=== PATIENT | female | born 1950 | race Caucasian/White ===

== ENCOUNTER → 2024-11-27 | Outpatient (CLI) | payer MEDICARE, BC, OTHER ==
[2024-11-27 15:41] LABS: HCT 42.8 % (37.2-46.3); HGB 14.6 g/dL (12.0-15.0); MCH 31.9 pg (27.0-32.0); MCHC 34.1 g/dL (32.0-37.0); MCV 93.7 FL (80.0-97.0); Mean Platelet Volume 10.3 FL (9.5-12.2); NRBC Per 100 WBC 0 X 10*3/uL (0.00-0.01); Platelet Count 268 X 10*3/uL (140-440); RBC 4.57 X 10*6/uL (4.10-5.20); RDW 12.4 % (11.5-14.5); WBC 8.85 X 10*3/uL (4.50-10.00)
[2024-11-27 16:33] LABS: Blood Urea Nitrogen 15.4 mg/dL (9.0-27.0); Carbon Dioxide 23.3 mmol/L (21.6-31.8); Chloride 106 mmol/L (96-109); Sodium 142 mmol/L (135-145)
== END | disposition home or self-care (01) ==
LOC: LABPAT 11:58
PROVIDERS: ATTEND Internal Medicine Interventional Cardiology
DX: Z01.812 Encounter for preprocedural laboratory examination (principal); I25.10 Atherosclerotic heart disease of native coronary artery without angina pectoris
CPT/HCPCS: 36415; 80051; 82565; 84520; 85027

== ENCOUNTER 2024-12-01 08:29 | Day surgery (SDC) | payer MEDICARE, BC, OTHER ==
[~2024-12-01 08:29] MED LIST: ALPRAZolam 0.25 MG TAB PO PRN; ALPRAZolam 0.5 MG TAB PO PRN; HEPARIN SODIUM,PORCINE (1 ML) 2,500 UNIT in SODIUM CHLORIDE 0.9% 250 ML IRRIGATION PRN; HEPARIN SODIUM,PORCINE 10,000 UNIT in SODIUM CHLORIDE 0.9% 1,000 ML IRRIGATION PRN; NITROGLYCERIN SL TABS 0.4 MG TAB SUBLINGUAL PRN
[2024-12-01] MEDS: MIDAZOLAM 2 MG/2 ML VIAL IVP ONE ×2 (10:57→11:21)
[2024-12-01] MEDS: LIDOCAINE 1% INJ 10MG/ML (20 ML MDV) SQ ONE (10:59)
[2024-12-01] MEDS: VERAPAMIL SYRINGE (5 MG/10 ML) INTRAARTER ONE ×2 (11:03→13:03)
[2024-12-01] MEDS: HEPARIN SODIUM 1,000 UN/ML (10ML VL) IVP ONE ×2 (11:05→11:20)
[2024-12-01] MEDS: NITROGLYCERIN 1000MCG/10ML SYRINGE INTRACORON ONE (11:07)
[2024-12-01] MEDS: IV FLUID CONTINUATION 400 ML IV ONE (11:21)
[2024-12-01] MEDS: SODIUM CHLORIDE 0.9% 1,000 ML IV ONE (11:22)
[2024-12-01] MEDS: SODIUM CHLORIDE 0.9% 500 ML 500 ML IV ONE (11:22)
[2024-12-01] MEDS: NITROGLYCERIN SL TABS 0.4 MG TAB SUBLINGUAL ONE (11:25)
[2024-12-01] MEDS: CLOPIDOGREL 75 MG TAB PO ONE (11:33)
[2024-12-01] MEDS: IOPAMIDOL-370 100ML BTL INJ ONE ×3 (11:35→13:02)
[2024-12-01] MEDS: HYDROmorphone 0.5 MG/0.5 ML SYRINGE IVP ONE ×2 (11:53→12:43)
[2024-12-01] MEDS: PHENYLEPHRINE-0.9% NACL SYG 1,000 MCG/10 ML SYRINGE IVP ONE (12:34)
[2024-12-01] MEDS: ONDANSETRON 4 MG/2 ML VIAL IVP ONE (12:40)
[2024-12-01] MEDS: NITROGLYCERIN 1000MCG/10ML SYRINGE INTRAARTER ONE (13:00)
[2024-12-01] MEDS: HEPARIN SODIUM,PORCINE (1 ML) 2,500 UNIT in SODIUM CHLORIDE 0.9% 250 ML IRRIGATION ONE (13:03)
[2024-12-01] MEDS: HEPARIN SODIUM (1,000 UNIT/ML) 1,000 UNIT in SODIUM CHLORIDE 0.9% 1,000 ML IRRIGATION ONE (13:03)
[2024-12-01] MEDS: ONDANSETRON 4 MG/2 ML VIAL IVP STA (13:25)
[2024-12-01] MEDS: ASPIRIN 325 MG TAB PO STA (13:35)
[2024-12-01] MEDS: ATORVASTATIN 80 MG TAB PO STA (13:35)
[2024-12-01] MEDS: SODIUM CHLORIDE 0.9% 1,000 ML IV SCH (13:36)
[2024-12-01] MEDS: HYDROmorphone 0.5 MG/0.5 ML SYRINGE IVP STA (14:36)
[2024-12-01] MEDS: CLOPIDOGREL 75 MG TAB PO SCH (14:37)
[2024-12-01 16:31] LABS: Glucose,Whole Blood 146 mg/dL (70-110)
[2024-12-01] MEDS: SODIUM CHLORIDE 0.9% 1,000 ML in EMPTY BAG 1 BAG IV SCH (16:31)
--- NOTE | 2024-12-01 16:34 | CA ---
Transthoracic Echo Report Name: Diana Sifuentes Age: 73 Gender: F : 1950 Exam Date: 12/01/2024 12:46 Exam Location: [facility] Ht (in): 64 Wt (lb): 119 Ordering Physician: Akanksha Bernal MD ([id number]) Attending/Referring Phys: Environmental Professional Allegra Chung RDCS Procedure CPT: Indications: HEART FUNCTION/EFFUSION POSSIBLE Cardiac Hx: Limited for pericardial effusion during cath Technical Quality: Good Contrast 1: Total Dose (mL): Contrast 2: Total Dose (mL): MEASUREMENTS (Male / Female) Normal Values FINDINGS Left Ventricle Left ventricular ejection fraction is estimated at 55 % by visual. Right Ventricle Right Atrium Left Atrium Mitral Valve Aortic Valve Tricuspid Valve Pulmonic Valve Pericardium No pericardial effusion. Aorta CONCLUSIONS Normal LV size and function without wall motion abnormality. No pericardial effusion Previewed by: Dr. Akanksha Bernal MD (Electronically Signed) Final Date: 01 Dec 2024 16:33
--- NOTE | 2024-12-01 17:14 | P.CARDCATH ---
Date of Procedure: 12/01/24 Description of Procedure: History: Patient was referred for cardiac catheterization to evaluate for progression of CAD. This is a 73-year-old lady with a known history of CAD with previous PCI of cherokee circumflex as well as ramus intermedius performed in 2006 with 2 drug- eluting stents of 3.0 caliber and varying lengths. She has been having exertional shortness of breath and a stress test revealed inferior lateral reversible defect therefore she was advised cardiac catheterization and possible PCI and brought in for the procedure after due discussion regarding risks benefits and options. Procedure: #1 left heart catheterization and coronary angiography. #2 intravascular ultrasound of circumflex coronary artery and right coronary artery adjunctive procedure performed before and after PCI. #3 iFR assessment of the ramus intermedius and right coronary artery. # 4 PTCA and stenting of proximal and mid circumflex coronary artery with 2 drug-eluting stents. #5 PTCA and stenting of proximal and mid/distal right coronary artery with 3 drug-eluting stents. Performed by Dr. Rosalio Bernal Procedure Details: The risks, benefits, complications, treatment options, and expected outcomes were discussed with the patient. The patient and/or family concurred with the proposed plan, giving informed consent. Patient was brought to the kiln labourer after IV hydration was begun and oral premedication was given. Patient was further sedated with midazolam. Patient was prepped and draped in the usual manner. Under strict aseptic precautions and local anesthesia a 6 Mongolian introducer was placed in the right radial artery. Using a JL 3/5 and a JR 4/0 catheters I performed coronary angiography and the same JR catheter was used to check LV pressures and LV gram was not performed. After the procedure was completed the sheaths and catheters were all removed. Hemostasis was achieved with TR band. Saturation in the fingers of the right hand was about 94%. Moderate conscious sedation time was 125 minutes. Patient's oxygen saturation hemodynamics and EKG were monitored closely. Findings: Hemodynamics: Left ventricle end-diastolic pressure was 8 mmHg without any gradient Left Main: Short patent vessel no significant disease bifurcates into LAD ramus and circumflex LAD: Fair caliber good distribution vessel has multiple areas of narrowing of up to 30 to 40% throughout. Diffuse disease noted CIRC: This vessel was stented before has a in-stent restenosis of about 80 to 90% with stenosis before and after the stent as well. Long area of disease. The previous stent was in 2006. The ramus intermedius also has a moderate disease of about 40 to 45% within the stent. But the flow is brisk. RCA: Dominant vessel has a long area of disease in the mid section proximal RCA has about 70% narrowing. Mid RCA has about 60% narrowing and moderate to heavy calcification and distally bifurcates into PDA and PLV which have mild diffuse disease LV: LV gram not performed Closure Device: TR band Complications: None Estimated Blood Loss: Minimal Impression: Right dominant system moderate disease in RCA proximal area of nearly 60 to 70% mid area of 50 to 60%. Normal filling pressures no gradient circumflex has in-stent restenosis long area of disease ramus has 40% in-stent restenosis with good brisk flow. LAD has mild to moderate diffuse disease throughout. Pre Procedure Diagnosis: Unstable angina with positive stress test Final Post Procedure Diagnosis: Unstable angina with significant triple-vessel disease Recommendation: After reviewing the angiograms I recommended IFR of the ramus, IFR of RCA and intervention of the cherokee circumflex and if indicated of the ramus and RCA as well and proceeded to perform the procedure in the same setting. Complications: None; patient tolerated the procedure well. Disposition: ICU after observation in the extended stay unit- hemodynamically stable. Condition: Stable Discharge Disposition: Following the cardiac cath and PCI and recommended hospitalization in the ICU for 24 hours possible discharge in 24 to 48 hours PCI procedure details: I used a 3.5 curved left Betzy guide catheter to cannulate the left coronary artery. I used a Sticher IFR wire advanced and positioned after appropriate zeroing and normalization into the ramus intermedius. iFR was 0.93 and 0.94 suggesting that it was not significant. I then advanced a a new run-through wire into the cherokee circumflex. I dilated the in-stent restenosis and distal to it as well as proximal to it with a 2.5 caliber 20 mm long NC trek balloon. I then deployed a 23 mm long 3.0 caliber Xience stent at 14 slava. Prior to that I performed intravascular ultrasound and noted that the reference diameter was about 2.75 but the previous stent was a 3.0 caliber in 2006. There was diffuse disease throughout. After deploying the Xience stent of 3.0 caliber 23 mm length I decided to deploy an additional 8 mm long stent proximal to the previous stent telescoping into it. Excellent angiographic result was achieved without complication I performed a postprocedure intravascular ultrasound and noted that the stent was well opposed with full expansion. I then turned my attention to the RCA. I used a standard right Betzy guide catheter to cannulate the right coronary artery and used the new Daniels wire after appropriate zeroing and normalization. The IFR came to be 0.85 in the mid RCA and proximal RCA therefore I recommended that we proceed with PCI and explained this to the patient. I used the same Daniels wire and over this I advanced it 20 mm long 2.5 caliber NC trek balloon and dilated the mid and proximal areas. There was moderate calcification noted. I deployed a 28 mm long 3.0 caliber Xience stent in the distal part of the lesion beyond the acute marginal. Good result was achieved. I then had lost the wire position and rewired it. I tried to advance another 23 mm long Xience stent but I had difficulty advancing the stent because of possibly the wire having got behind the previous stent. After some efforts patient had chest pain and mild area of haziness at the proximal end of the previously placed stent and she developed EKG changes of ST elevation in the inferior lateral leads with somewhat of a sluggish flow. I was concerned there may be a small microperforation as well because of pericarditis type changes and the pleuritic chest pain. At this point I took the wire out and really advanced and placed a new wire at this time made sure that it was right into the previously placed stent and advanced it well into the PLV branch. I then deployed a 12 mm long Xience stent of 3.0 caliber and address the area of haziness. This was addressed very well and another 18 mm long 3.25 caliber stent was deployed in the proximal portion. Excellent angiographic result was achieved but patient continued to have pleuritic type chest pain with inferolateral ST elevation. I performed a bedside echocardiogram and noted that there was no effusion at all. LV function was good without wall motion. I felt there may have been some pericardial injury causing the pain and EKG changes therefore observe the patient for a while and then I performed ultrasound noted that the stent was fully expanded with excellent apposition. I then explained to the patient that we may have had a small microperforation with pericardial inflammation but no effusion and she did well with the Dilaudid administration pain was relieved EKG improved and she was sent to the esu and I explained to the patient that we will observe her in the ICU for 24 hours and repeat another echocardiogram tomorrow. Patient received 450 mg of Plavix. She weighs only 54 kg and I gave her about 4500 units of heparin and ACT was over 350. At the end of the procedure also the ACT was in the 300 range. Patient will be on aspirin and Plavix without interruption for 1 year. Excellent angiographic result was achieved patient had significant relief of pain and she was sent to the esu in a stable condition. Findings and details were explained to the patient as well as her . I will observe her in ICU for 24 hours and repeat an echo tomorrow morning. Excellent angiographic result was achieved of both circumflex as well as RCA and ultrasound revealed good apposition with full expansion of the stent in both vessels.
[2024-12-01] MEDS: ACETAMINOPHEN TAB 325 MG TAB PO PRN (20:32)
[2024-12-01] MEDS: ONDANSETRON 4 MG/2 ML VIAL IVP PRN (23:44)
[2024-12-02 05:32] LABS: Basophils # (A) 0.02 10*3/uL (0.00-0.10); Basophils % (A) 0.1 %; HCT 32.4 % (37.2-46.3); HGB 11.9 g/dL (12.0-15.0); Lymphocytes # (A) 1.57 10*3/uL (0.90-5.00); Lymphocytes % (A) 10.7 %; MCHC 36.7 g/dL (32.0-37.0); MCV 92.6 fL (80.0-97.0); Mean Platelet Volume 10.9 fL (9.5-12.2); Monocytes # (A) 0.92 10*3/uL (0.20-1.00); Monocytes % (A) 6.3 %; Neutrophils # (A) 12.12 10*3/uL (1.80-7.70); Neutrophils % (A) 82.4 %; Platelet Count 214 10*3/uL (140-440); RDW 12.8 % (11.5-14.5); WBC 14.71 10*3/uL (4.50-10.00)
[2024-12-02 05:55] LABS: African American GFR (CKD) >90 (>60 ml/min/1.73 sqM); Anion Gap 7 mmol/L; Blood Urea Nitrogen 11 mg/dL (7-17); Calcium 8.4 mg/dL (8.4-10.2); Carbon Dioxide 21 mmol/L (22-30); Chloride 110 mmol/L (98-107); Glucose 127 mg/dL (74-99); Non-African American GFR(CKD) >90 (>60 ml/min/1.73 sqM); Potassium 3.5 mmol/L (3.5-5.1); Sodium 138 mmol/L (137-145)
[2024-12-02] MEDS: PANTOPRAZOLE 40 MG TABLET PO SCH (06:27)
[2024-12-02] MEDS: POTASSIUM CHLORIDE ER 20 MEQ TAB.ER PO STA (06:27)
--- NOTE | 2024-12-02 06:39 | P.PN ---
Subjective Progress Note Date: 12/02/24 The patient was seen and evaluated this morning. She still have about 1-2/10 in intensity chest discomfort which has been stable and has not changed compared to before associated with shortness of breath. Beside that she still slightly hypoxic on room air. No other issues. The right radial site is soft and nontender with no bruises. The physical examination is remarkable for regular rhythm with a soft systolic murmur and bilateral rhonchi mostly noted in the bases. Assessment CAD status post PCI of the RCA Hypertension Dyslipidemia Plan Continue the current medical regimen including dual antiplatelet therapy Give the patient a dose of 20 mg of Lasix IV The patient can be transferred to the third floor Consider discharge in next 24 to 48 hours Objective - Vital Signs Vital signs: Vital Signs Temp 98.6 F 12/02/24 04:00 Pulse 65 12/02/24 06:00 Resp 17 12/02/24 06:00 BP 119/62 12/02/24 06:00 Pulse Ox 93 L 12/02/24 06:00 FiO2 Intake & Output 12/01/24 12/01/24 12/02/24 06:59 18:59 06:59 Intake Total 1575 1140 Output Total 0 Balance 1575 1140 Weight 54 kg 60.8 kg Intake: IV 1575 900 Sodium Chloride 0.9% 1, 225 900 000 ml @ 75 mls/hr IV . [id number] [facility] Rx#:[id number] Oral 240 Output: Urine 0 Other: Voiding Method Toilet Toilet # Voids 1 1 # Bowel Movements 1 - Labs CBC & Chem 7: 12/02/24 05:10 12/02/24 05:10 Labs: Abnormal Lab Results - Last 24 Hours (Table) 12/01/24 12/02/24 12/02/24 Range/Units 16:30 05:10 05:10 WBC 14.71 H (4.50-10.00) 10*3/uL RBC 3.50 L (4.10-5.20) 10*6/uL Hgb 11.9 L (12.0-15.0) g/dL Hct 32.4 L (37.2-46.3) % MCH 34.0 H (27.0-32.0) pg Immature Gran # 0.08 H (0.00-0.04) 10*3/uL Neutrophils # 12.12 H (1.80-7.70) 10*3/uL Eosinophils # 0.00 L (0.04-0.35) 10*3/uL Chloride 110 H (98-107) mmol/L Carbon Dioxide 21 L (22-30) mmol/L Glucose 127 H (74-99) mg/dL POC Glucose (mg/dL) 146 H (70-110) mg/dL
[2024-12-02] MEDS: FUROSEMIDE 10 MG/ML 2 ML VIAL IV ONE (07:04)
[2024-12-02] MEDS: amLODIPine 5 MG TAB PO SCH (08:12)
[2024-12-02] MEDS: ASPIRIN 81 MG PO SCH (08:12)
[2024-12-02] MEDS: METOPROLOL TARTRATE 25 MG TAB PO SCH (08:12)
[2024-12-02] MEDS: CHOLECALCIFEROL 125 MCG (5000 IU) TABLET PO SCH (08:12)
[2024-12-02] MEDS: ATORVASTATIN 40 MG TAB PO SCH (08:12)
--- NOTE | 2024-12-02 13:53 | CA ---
Transthoracic Echo Report Name: Diana Sifuentes Age: 73 Gender: F : 1950 Exam Date: 12/02/2024 08:03 Exam Location: [facility] Ht (in): 64 Wt (lb): 119 Ordering Physician: Akanksha Bernal MD ([id number]) Attending/Referring Phys: Roll Panner Procedure CPT: Indications: Rule out pericardial effusion and RWMA status post pci Cardiac Hx: Limited echo following pci 12/02 Technical Quality: Good Contrast 1: Total Dose (mL): Contrast 2: Total Dose (mL): MEASUREMENTS (Male / Female) Normal Values 2D ECHO LV Diastolic Diameter PLAX 4.4 cm 4.2 - 5.9 / 3.9 - 5.3 cm LV Systolic Diameter PLAX 2.8 cm IVS Diastolic Thickness 0.9 cm 0.6 - 1.0 / 0.6 - 0.9 cm LVPW Diastolic Thickness 1.0 cm 0.6 - 1.0 / 0.6 - 0.9 cm LV Relative Wall Thickness 0.4 LV Diastolic Volume MOD BP 81.2 cm??? 67 - 155 / 56 - 104 cm??? LV Systolic Volume MOD BP 34.5 cm??? 22 - 58 / 19 - 49 cm??? LV Ejection Fraction MOD BP 57.5 % >= 55 % LV Cardiac Index MOD BP 2008.5 cm???/min???m??? LV Diastolic Volume MOD 4C 72.9 cm??? LV Systolic Volume MOD 4C 29.8 cm??? LV Ejection Fraction MOD 4C 59.1 % LV Cardiac Index MOD 4C 1851.2 cm???/min???m??? LV Diastolic Length 4C 6.8 cm LV Systolic Length 4C 5.3 cm LV Diastolic Volume MOD 2C 88.5 cm??? LV Systolic Volume MOD 2C 36.3 cm??? LV Ejection Fraction MOD 2C 59.0 % LV Cardiac Index MOD 2C 2243.9 cm???/min???m??? LV Diastolic Length 2C 7.0 cm LV Systolic Length 2C 5.9 cm DOPPLER AV Peak Velocity 149.4 cm/s AV Peak Gradient 8.9 mmHg AV Mean Velocity 99.1 cm/s AV Mean Gradient 4.4 mmHg AV Velocity Time Integral 32.2 cm LVOT Peak Velocity 94.1 cm/s LVOT Peak Gradient 3.5 mmHg LVOT Velocity Time Integral 21.3 cm MV Peak Velocity 123.1 cm/s MV Peak Gradient 6.1 mmHg MV Mean Velocity 68.1 cm/s MV Mean Gradient 2.2 mmHg MV Velocity Time Integral 32.5 cm MR Peak Velocity 546.4 cm/s MR Peak Gradient 119.4 mmHg MR Flow Rate PISA 40.7 cm???/s MR ERO PISA 0.1 cm??? MR Regurgitant Volume PISA 13.0 cm??? TR Peak Velocity 274.6 cm/s TR Peak Gradient 30.2 mmHg Right Atrial Pressure 5.0 mmHg Pulmonary Artery Systolic Pressu 35.2 mmHg Right Ventricular Systolic Press 35.2 mmHg FINDINGS Left Ventricle Left ventricular ejection fraction is estimated at 55-60 %. Left ventricular cavity size normal. Left ventricular wall thickness normal. No obvious regional wall motion abnormalities. Right Ventricle Normal right ventricular size and function. Mild pulmonary hypertension. Right Atrium Left Atrium Mitral Valve Structurally normal mitral valve. No mitral stenosis. Moderate mitral regurgitation. Aortic Valve Trileaflet aortic valve. Diffuse thickening (sclerosis) of the aortic valve cusps without reduced excursion. No aortic valve stenosis or regurgitation. Tricuspid Valve Structurally normal tricuspid valve. No tricuspid stenosis. Mild tricuspid regurgitation. Pulmonic Valve Pericardium Trace pericardial effusion. Echo free space anterior to the right ventricle likely represents a fat pad. Aorta CONCLUSIONS Normal LV systolic function Moderate to severe mitral regurgitation Aortic sclerosis Mild pulmonary hypertension Trace pericardial effusion Previewed by: Dr. Jose García MD (Electronically Signed) Final Date: 02 Dec 2024 13:52
[2024-12-02] MEDS: COLCHICINE 0.6 MG EACH PO SCH (13:59)
[2024-12-02 14:44] VITALS: BMI 23.0
[2024-12-02] MEDS: INDOMETHACIN 25 MG CAP PO SCH (14:49)
--- NOTE | 2024-12-03 08:33 | P.DS ---
Providers Attending physician: Akanksha Bernal Primary care physician: [facility] Course: The patient is a pleasant 73-year-old female patient who was admitted as an outpatient and underwent PCI of the RCA by Dr. Bernal She was seen and evaluated this morning which she is asymptomatic and hemodynamically stable. She was started on colchicine by Dr. Bernal and she will be discharged on colchicine along with dual antiplatelet therapy along with a statin. The physical examination overall is unremarkable The limited echo showed trace pericardial effusion with no significant abnormalities besides valvular heart disease which is chronic The patient will be discharged home later on today Plan - Discharge Summary Discharge Rx Participant: No New Discharge Prescriptions: New Clopidogrel [Plavix] 75 mg PO DAILY #90 tab Continue Aspirin EC [Ecotrin Low Dose] 81 mg PO DAILY Cholecalciferol [Vitamin D3 (125 Mcg = 5000 Iu)] 125 mcg PO DAILY Atorvastatin [Lipitor] 40 mg PO DAILY Metoprolol Tartrate [Lopressor] 25 mg PO DAILY amLODIPine [Norvasc] 5 mg PO DAILY Zinc. 150mg 150 mg PO DAILY Omeprazole 20 mg PO DAILY Discharge Medication List Aspirin EC [Ecotrin Low Dose] 81 mg PO DAILY 03/21/18 [History] Atorvastatin [Lipitor] 40 mg PO DAILY 11/28/24 [History] Cholecalciferol [Vitamin D3 (125 Mcg = 5000 Iu)] 125 mcg PO DAILY 11/28/24 [History] Metoprolol Tartrate [Lopressor] 25 mg PO DAILY 11/28/24 [History] Omeprazole 20 mg PO DAILY 11/28/24 [History] Zinc. 150mg 150 mg PO DAILY 11/28/24 [History] amLODIPine [Norvasc] 5 mg PO DAILY 11/28/24 [History] Clopidogrel [Plavix] 75 mg PO DAILY #90 tab 12/03/24 [Rx] Follow up Appointment(s)/Referral(s): Akanksha Bernal MD [STAFF PHYSICIAN] - 1 Week
[2024-12-03 11:03] VITALS: BP 116/70; PULSE 98; RESP 16; TEMP 98.4
== END 2024-12-03 09:47 | disposition home or self-care (01) ==
LOC: CATHCVL 08:29 → 2SICU 15:34 → 3SCARD 12-03 05:48 → CATHCVL 12-03 09:47
PROVIDERS: ATTEND Internal Medicine Interventional Cardiology
DX: I25.110 Atherosclerotic heart disease of native coronary artery with unstable angina pectoris (principal); I34.0 Nonrheumatic mitral (valve) insufficiency; I70.0 Atherosclerosis of aorta; I27.20 Pulmonary hypertension, unspecified; I10 Essential (primary) hypertension; E78.2 Mixed hyperlipidemia; Z95.5 Presence of coronary angioplasty implant and graft; Z88.0 Allergy status to penicillin; Z88.2 Allergy status to sulfonamides; Z88.1 Allergy status to other antibiotic agents; Z79.02 Long term (current) use of antithrombotics/antiplatelets; Z79.82 Long term (current) use of aspirin; Z79.899 Other long term (current) drug therapy
CPT/HCPCS: 93308; 92978; 92979; 93458; 93799; 80048; 85025; C9600; C1887 ×2; C1769 ×3; C1894; C1753; C1874 ×5; C1725 ×2; J2250; J1644 ×2; J2405 ×2; J2003; J1171; Q9967; J2371; J2305; J1938